=== PATIENT | male | born 1950 | race African-American/Black ===

== ENCOUNTER 2020-10-05 06:40 | Emergency (ER) | payer OTHER ==
[2020-10-05] MEDS ORDERED: Midazolam HCl 5 mg/ml Vial ONE ×3 (06:51→07:10)
[2020-10-05 07:08] LABS: Prothrombin Time 13.2 sec (12.0-14.7)
[2020-10-05 07:09] LABS: PTT 28.3 sec (22.9-36.1)
[2020-10-05 07:11] LABS: #Basophils 0.3 thou/uL (0.0-0.2); #Eosinphils 0.8 thou/uL (0.0-0.7); #Lymphocytes 3.8 thou/uL (1.20-3.40); #Neutrophils 13.5 thou/uL (1.40-6.50); %Basophils 1.5 % (0.0-1.0); %Eosinophils 4.1 % (0.0-10.0); %Lymphocytes 18.6 % (21.0-51.0); %Neutrophils 66.2 % (42.0-75.0); Hemoglobin 14.5 g/dL (14.0-18.0); Mean Corpuscular HGB CONC 28.3 g/dL (32.0-36.0); Mean Corpuscular Hemoglobin 24.4 pg (27.0-31.0); Mean Corpuscular Volume 86.3 fL (78.0-98.0); Mean Platelet Volume 9.7 fL (7.4-10.4); Platelet Count 632 thou/uL (130-400); RBC Distribution Width 14.3 % (11.5-14.5); Red Blood Cell (RBC) Count 5.95 mill/uL (4.70-6.10); White Blood Cell (WBC) Count 20.4 thou/uL (4.8-10.8)
[2020-10-05] MEDS ORDERED: Propofol 500 MG/50 ML VIAL ONE (07:14)
[2020-10-05 07:17] LABS: ALT (SGPT) 26 U/L (8-55); AST (SGOT) 21 U/L (5-34); Albumin 4.7 g/dL (3.4-4.8); Alkaline Phosphatase 168 U/L (40-110); Anion Gap 16 mmol/L (10-20); BUN (Urea Nitrogen) 12 mg/dL (8.4-25.7); Bilirubin, Total 0.5 mg/dL (0.2-1.2); Calc. Creatinine Clearance 0 mL/min (70-130); Calcium 9.1 mg/dL (7.8-10.44); Carbon Dioxide 29 mmol/L (23-31); Chloride 103 mmol/L (98-107); Globulin 4.3 g/dL (2.4-3.5); Glucose 261 mg/dL (80-115); Lipase 7 U/L (8-78); Potassium 4.4 mmol/L (3.5-5.1); Sodium 144 mmol/L (136-145)
[2020-10-05 07:22] LABS: D-Dimer Test 0.44 *mcg/mL (0.27-0.43)
[2020-10-05] MEDS ORDERED: Aspirin 300 MG Suppository ONE (07:31)
[2020-10-05] MEDS ORDERED: Succinylcholine 200 MG/10 ml SYRINGE FS ONE (09:00)
== END 2020-10-05 07:46 | disposition short-term general hospital (02) ==
LOC: NAV ERS 06:40
DX: R41.82 Altered mental status, unspecified (principal); I16.1 Hypertensive emergency; D72.829 Elevated white blood cell count, unspecified; R09.2 Respiratory arrest; J44.9 Chronic obstructive pulmonary disease, unspecified
CPT/HCPCS: 31500; 36416; 70450; 71045; 80053; 83605; 83690; 83880; 84484; 85025; 85379; 85610; 85730; 93005; 96374; 96375; 96376; J2250; J2704